=== PATIENT | male | born 1960 | race Asian ===

== ENCOUNTER 2019-12-22 06:45 | Day surgery (SDC) | payer OTHER ==
[~2019-12-22] VITALS: Ht 175.3 cm; Wt 75.0 kg
[~2019-12-22 06:45] MED LIST: SODIUM CHLORIDE 0.9% 1,000 ML IV ONE; SODIUM CHLORIDE 0.9% 1,000 ML ONE
[2019-12-22] MEDS ORDERED: BENZOCAINE 20% 50 MCG/SPRAY 57 GM TP ONE (06:46)
[2019-12-22] MEDS ORDERED: LIDOCAINE 4% 50 ML SOLUTION TP ONE (06:46)
[2019-12-22] MEDS ORDERED: ALBUTEROL SULFATE 2.5 MG/0.5 ML NEB SOLUTION NEB ONE (06:46)
[2019-12-22] MEDS ORDERED: LIDOCAINE 2% 30 ML JELLY TP ONE (06:46)
[2019-12-22] MEDS ORDERED: FLUT16H NASAL (07:37)
[2019-12-22] MEDS ORDERED: NYST100033 PO (07:37)
[2019-12-22] MEDS ORDERED: SIMV-260 PO (07:37)
[2019-12-22] MEDS ORDERED: UMEC1DIS PO (07:37)
[2019-12-22] MEDS ORDERED: BENZ200C53 PO (07:37)
[2019-12-22] MEDS ORDERED: MONT10TA21 PO (07:37)
[2019-12-22] MEDS ORDERED: DOXY-171 PO (07:37)
[2019-12-22] MEDS ORDERED: PRED10 PO (07:37)
[2019-12-22] MEDS ORDERED: AMLO-258 PO (07:37)
[2019-12-22] MEDS ORDERED: MIDAZOLAM HCL 2 MG/2 ML VIAL ONE (07:56)
[2019-12-22] MEDS ORDERED: FentaNYL CITRATE-PF 100 MCG/2 ML VIAL ONE (07:56)
[2019-12-22] MEDS ORDERED: MethylPREDNISolone SOD SUCC 125 MG/2 ML VIAL IVP ONE (08:30)
[2019-12-22] MEDS ORDERED: MethylPREDNISolone SOD SUCC 125 MG/2 ML VIAL ONE (08:55)
[2019-12-22] MEDS ORDERED: OXYGEN THERAPY IH SCH (20:00)
== END 2019-12-22 10:30 | disposition home or self-care (01) ==
LOC: SURGERY 06:45
PROVIDERS: ATTEND Internal Medicine Critical Care Medicine
DX: J38.4 Edema of larynx (principal); B37.0 Candidal stomatitis; I10 Essential (primary) hypertension; E78.5 Hyperlipidemia, unspecified; Z87.891 Personal history of nicotine dependence; Z72.89 Other problems related to lifestyle; Z11.59 Encounter for screening for other viral diseases
CPT/HCPCS: 31623; 31624; 71045; 87015; 87070; 87077; 87101; 87186; 87205; 87206; 87220; 87635; 88108; J2250; J2930; J3010; J7030; J7613; Z7610

== ENCOUNTER 2021-01-10 05:48 | Day surgery (SDC) | payer OTHER ==
[2021-01-09 12:29] LABS: COVID AG,FIA SOURCE NASOPHARYNGEAL
[~2021-01-10] VITALS: Ht 175.3 cm; Wt 79.5 kg
[~2021-01-10 05:48] MED LIST changes: +AMLO-258 PO; +BENZ200C53 PO; +DOXY-171 PO; +FLUT16H NASAL; +MONT-35 PO; +NYST100033 PO; +PRED10 PO; +SIMV-260 PO; -SODIUM CHLORIDE 0.9% 1,000 ML IV ONE; -SODIUM CHLORIDE 0.9% 1,000 ML ONE; +UMEC1DIS PO
[2021-01-10] MEDS ORDERED: LIDOCAINE 2% 30 ML JELLY TP ONE (05:49)
[2021-01-10] MEDS ORDERED: ALBUTEROL SULFATE 2.5 MG/0.5 ML NEB SOLUTION NEB ONE (05:49)
[2021-01-10] MEDS ORDERED: BENZOCAINE 20% 50 MCG/SPRAY 57 GM TP ONE (05:49)
[2021-01-10] MEDS ORDERED: SODIUM CHLORIDE 0.9% 1,000 ML ONE (05:50)
[2021-01-10] MEDS ORDERED: SODIUM CHLORIDE 0.9% 1,000 ML IV ONE (06:30)
[2021-01-10] MEDS ORDERED: MIDAZOLAM HCL 5 MG/ML VIAL ONE (08:08)
[2021-01-10] MEDS ORDERED: FentaNYL CITRATE PF 100 MCG/2 ML VIAL ONE (08:08)
[2021-01-10] MEDS ORDERED: FLUT1BLS IH (09:05)
[2021-01-10] MEDS ORDERED: CETI-450 PO (09:05)
[2021-01-10] MEDS ORDERED: MethylPREDNISolone SOD SUCC 125 MG/2 ML VIAL ONE (09:12)
[2021-01-10] MEDS ORDERED: MethylPREDNISolone SOD SUCC 125 MG/2 ML VIAL IVP ONE ×2 (09:30)
[2021-01-10] MEDS ORDERED: OXYGEN THERAPY IH SCH (20:00)
== END 2021-01-10 11:10 | disposition home or self-care (01) ==
LOC: SURGERY 05:48
PROVIDERS: ATTEND Internal Medicine Critical Care Medicine
DX: J38.4 Edema of larynx (principal); B37.0 Candidal stomatitis; Z72.89 Other problems related to lifestyle; Z79.899 Other long term (current) drug therapy; Z98.890 Other specified postprocedural states
CPT/HCPCS: 31623; 31624; 71045; 87015; 87070; 87101; 87205; 87206; 87220; 87426; 88108; 88184; 88185; 88312; C9803; J2250; J2930; J3010; J7030; J7613